=== PATIENT | male | born 1970 | race Caucasian/White ===

== ENCOUNTER 2021-11-24 15:17 | Emergency (ER) | payer OTHER, SELFPAY ==
[2021-11-24 15:24] VITALS: BP 130/69; PULSE 70; RESP 20; TEMP 36.6; O2SAT 98
--- NOTE | 2021-11-24 15:33 | ED.EAR ---
HPI - Ear Problem General Chief complaint: Ear Stated complaint: Right Ear Pain Time Seen by Provider: 11/24/21 15:30 Source: patient Mode of arrival: ambulatory Limitations: no limitations History of Present Illness HPI Narrative: Mr. Payne is a 51-year-old male patient presenting to the clinic today with complaints of right ear pain off and on for 2 months. But worse the last couple days. He noticed that he did get some water in his ear and thinks he may have an outer ear infection. He denies any fever or chills but he states that his hearing in the right ear has significantly decreased. Related Data Home Medications Medication Instructions Recorded Confirmed dextroamphetamine-amphetamine 20 20 mg PO DAILY 11/24/21 11/24/21 mg tablet fluoxetine 20 mg capsule 20 mg PO DAILY 11/24/21 11/24/21 Allergies Allergy/AdvReac Type Severity Reaction Status Date / Time No Known Allergies Allergy Unknown Verified 11/24/21 15:31 Review of Systems Review of Systems: Pertinent positives per HPI. Patient denies any fever, chills, rash, headache, visual changes, dizziness, cough, runny nose, sore throat, shortness of breath, chest pain, palpitations, nausea, vomiting, diarrhea, constipation, abdominal pain, or any urinary issues. [facility] Past Medical History Medical History (Updated 11/24/21 @ 15:50 by Ibrahima Cox APRN) Depression HLD (hyperlipidemia) Kidney stones Seasonal allergies Strabismus Surgical History Surgical History History of strabismus surgery correction of strabismus Hx of elbow surgery lt ulnar nerve release Hx of tympanostomy tubes Social History Social History Smoking status: Never smoker Comments At the time of my signature, I reviewed and agree with the nursing past medical, surgical, social, and family history. There is no relevant family history pertinent to the patient complaint. Exam Narrative: General: Well-developed, obese, in no apparent distress Head: Normocephalic, atraumatic Eyes: Pupils equally round and reactive to light bilaterally, EOM intact, sclera and conjunctive clear, no discharge, lids normal Ears: TMs intact and clear, ear canals with redness and swelling with noted foreign body, no drainage, grossly hearing normal. Nose: Nares patent, no discharge, no inflammation, no sinus tenderness. Mouth: Oropharynx without lesions or masses, good dentition, MMM. Neck: Supple, trachea midline, no enlargement of anterior or posterior cervical nodes, no thyroid masses or goiter palpable. Cardio: Regular rate and rhythm, s1 and s2 normal, no murmur appreciated. Resp: Clear to auscultation bilaterally anteriorly and posteriorly, no rhonchi, rales, wheezing or rubs is left-sided Course Course Emergency Course: Portions of this record may have been created with voice recognition software. Level of Care: Express Care Visit Vital Signs Vital signs: Vital Signs Temperature 36.6 C 11/24/21 15:24 Pulse Rate 70 11/24/21 15:24 Respiratory Rate 20 11/24/21 15:24 Blood Pressure 130/69 11/24/21 15:24 Pulse Oximetry 98 11/24/21 15:24 Oxygen Delivery Room Air 11/24/21 15:24 Temperature 36.6 C 11/24/21 15:24 Pulse Rate 70 11/24/21 15:24 Respiratory Rate 20 11/24/21 15:24 Blood Pressure 130/69 11/24/21 15:24 Pulse Oximetry 98 11/24/21 15:24 Oxygen Delivery Room Air 11/24/21 15:24 Vital signs reviewed Procedures FB Removal Ear Foreign Body #1: Foreign Body Removal Date: 11/24/21 Location: ear canal (R) Foreign Body Suspected: other (Cotton from Q-tip) TM intact pre-procedure: unable to visualize Foreign Body Removed: yes Foreign Body Removal Technique: irrigation Tympanic Membrane Intact Post Procedure: No Patient Tolerated Procedure: well and no co
== END 2021-11-24 15:57 | disposition home or self-care (01) ==
PROVIDERS: Emergency Provider Nurse Practitioner Family; PCP Emergency Medicine
DX: H60.311 Diffuse otitis externa, right ear (principal); H66.011 Acute suppurative otitis media with spontaneous rupture of ear drum, right ear; T16.1XXA Foreign body in right ear, initial encounter; X58.XXXA Exposure to other specified factors, initial encounter; E78.5 Hyperlipidemia, unspecified; F32.A Depression, unspecified
CPT/HCPCS: 69200; 99213; G0463

== ENCOUNTER 2022-02-02 14:06 | Emergency (ER) | payer OTHER, SELFPAY ==
[2022-02-02 14:10] VITALS: BP 160/79; PULSE 91; RESP 32; TEMP 36.9; O2SAT 98
[2022-02-02 14:19] LABS: Glucose Point of Care 100 mg/dl (65-105)
--- NOTE | 2022-02-02 14:19 | ED.URI ---
HPI - URI/Sore Throat General Chief Complaint: Upper Respiratory Infection Stated Complaint: sore throat achey sores on tongue Time Seen by Provider: 02/02/22 14:19 Source: patient and RN notes reviewed History of Present Illness HPI Narrative: Patient is a 51-year-old male who presents to the Urgent Care with complaints of sore throat, body aches, fatigue and dry mouth. Patient states has been ongoing for approximately 10 days. Patient states he has been taking DayQuil/ NyQuil for the symptoms. Denies any ill exposures or recent illness. Patient has not seen a doctor since the symptoms started. Denies any fever, nausea, vomiting or abdominal pain. No other acute complaints. No acute distress noted. Patient aware care. Some parts of this dictation were generated by voice recognition software and may contain typographical and/or grammatical inaccuracies. Related Data Home Medications Medication Instructions Recorded Confirmed dextroamphetamine-amphetamine 20 20 mg PO DAILY 11/24/21 11/24/21 mg tablet fluoxetine 20 mg capsule 20 mg PO DAILY 11/24/21 11/24/21 Allergies Allergy/AdvReac Type Severity Reaction Status Date / Time No Known Allergies Allergy Unknown Verified 02/02/22 14:32 Review of Systems Review of Systems: CONSTITUTIONAL: Denies fever, chills, or sweats. reports of fatigue EYES: Denies visual changes, redness, or discharge. ENT: Denies rhinorrhea, congestion, otalgia. Reports a sore throat and sores in the CARDIOVASCULAR: Denies chest pain, palpitations, or edema. RESPIRATORY: Denies cough or dyspnea. GASTROINTESTINAL: Denies abdominal pain, nausea, vomiting, or diarrhea. GENITOURINARY: Denies dysuria or hematuria. SKIN: Denies rash or itching. MUSCULOSKELETAL: Denies back pain, joint pain. Reports body aches NEUROLOGIC: Denies headache, numbness, or weakness. All other systems reviewed are negative, except as documented in HPI. [facility] Past Medical History Medical History (Updated 02/02/22 @ 15:02 by BLANE Bermudez) Depression HLD (hyperlipidemia) Kidney stones Seasonal allergies Strabismus Surgical History Surgical History History of strabismus surgery correction of strabismus Hx of elbow surgery lt ulnar nerve release Hx of tympanostomy tubes Social History Social History Smoking status: Never smoker Comments At the time of my signature, I reviewed and agree with the nursing past medical, surgical, social, and family history. There is no relevant family history pertinent to the patient complaint. Exam Narrative: GENERAL: This is a well-nourished, well-developed patient, in no apparent distress. HEAD: normocephalic, atraumatic. EYES: PERRL. Sclera clear/white. Vision is grossly intact. EARS: External ears normal, auditory canals clear and without drainage, TMs normal without perforation. Hearing grossly intact. NOSE: External nose normal with no obvious nasal discharge, nares without redness, no rhinorrhea. THROAT: Mucous membranes moist, posterior pharynx clear. mild postnasal drainage. Ulcerations noted to the left side of the oral mucosa and tongue. NECK: Neck supple, non-tender without lymphadenopathy CARDIOVASCULAR: Regular rate and rhythm without murmurs, gallops, or rubs. RESPIRATORY: Clear to auscultation. Breath sounds equal bilaterally. No wheezes, rales, or rhonchi. SKIN: warm, intact with no suspicious lesions or rash, good texture and turgor. NEURO: awake, alert, and oriented to person, place and time. There were no obvious focal neurologic abnormalities. EXTREMITIES: No clubbing, cyanosis, or edema. Course Course Level of Care: Express Care Visit Vital Signs Vital signs: Vital Signs Temperature 98.5 F 02/02/22 14:10 Pulse Rate 91 02/02/22 14:10 Respiratory Rate 32 H 02/02/22 14:10 Blood Pressure 160/79 H
== END 2022-02-02 15:07 | disposition home or self-care (01) ==
PROVIDERS: Emergency Provider Nurse Practitioner Family; PCP Emergency Medicine
DX: J02.0 Streptococcal pharyngitis (principal); Z20.822 Contact with and (suspected) exposure to COVID-19; E78.5 Hyperlipidemia, unspecified; F32.A Depression, unspecified
CPT/HCPCS: 82948; 87426; 87804; 87880; 99213; C9803; G0463

== ENCOUNTER 2022-08-13 17:59 | Emergency (ER) | payer OTHER, SELFPAY ==
--- NOTE | ~2022-08-13 | CT_ITS ---
EXAMINATION: CTA chest PE protocol DATE: 08/13/2022 19:01 INDICATION: Chest pain. Dyspnea. TECHNIQUE: Computed tomography angiography (CTA) of the chest was performed with 200 mL Omnipaque-350 intravenous contrast timed to evaluate the pulmonary arteries. Coronal maximum intensity projection 3D-reconstructions were created by the technologist. Automated exposure control and iterative reconst ruction technique were employed. The dose-length product was 1935.84 mGy-cm. COMPARISON: CT abdomen and pelvis 01/06/2019 FINDINGS: The lungs demonstrate mild atelectasis. No pleural effusion. The heart size is normal. No p ericardial effusion. There is no pulmonary embolus. There is diffuse hepatic steatosis. There is mild thoracic spondylosis. IMPRESSION: 1. No pulmonary embolus. 2. Diffuse hepatic steatosis. Reviewed, dictated and finalized at location E.
--- NOTE | ~2022-08-13 | XR_ITS ---
EXAMINATION: XR chest 2V DATE: 08/13/2022 18:12 INDICATION: Chest pain. Shortness of breath. TECHNIQUE: Frontal and lateral views of the chest were obtained. COMPARISON: Chest 2 views 01/23/2018, CT abdomen and pelvis 01/06/2019 FINDINGS: There is no pneumonia, pleural effusion, or pneumothorax. The heart size is normal. IMPRESSION: 1. No acute cardiopulmonary disease. Reviewed, dictated and finalized at location E.
--- NOTE | 2022-08-13 18:00 | ECG_ITS ---
Measurements Intervals [place] Rate: 92 P: 38 NE: 143 QRS: 8 QRSD: 93 T: 52 QT: 335 QTc: 416 Interpretive Statements SINUS RHYTHM NORMAL ECG NO PREVIOUS ECG AVAILABLE FOR COMPARISON Electronically Signed On 08-13-2022 20:18:08 CDT by Ryan Mullen D.O.
[2022-08-13 18:08] VITALS: BP 145/83; PULSE 102; RESP 17; TEMP 37; O2SAT 99
[2022-08-13 18:22] LABS: Basophils Percent Auto 0.2 % (0.2-1.2); Eosinophils Absolute Auto 0.1 K/mm3 (0-0.3); Eosinophils Percent Auto 0.6 % (0-4.4); Hematocrit 46.1 % (42.0-52.0); Hemoglobin 15.7 g/dL (14.0-18.0); Immature Granulocyte Absolute 0.05 K/mm3 (0.00-0.031); Immature Granulocyte Percent A 0.4 % (0-0.5); Lymphocytes Absolute Auto 3.01 K/mm3 (0.9-3.2); Lymphocytes Percent Auto 22.7 % (18.3-44.2); Mean Corpuscular HGB Conc 34.1 g/dl (32-36); Mean Platelet Volume 8.6 fl (7.4-10.4); Monocytes Absolute Auto 0.9 K/mm3 (0.1-0.6); Monocytes Percent Auto 6.9 % (2.6-8.5); Neutrophils Absolute Auto 9.2 K/mm3 (1.3-6.7); Neutrophils Percent Auto 69.2 % (45.5-73.1); Platelet Count Result 353 k/mm3 (150-375); Red Blood Count 5.24 M/mm3 (4.6-6.20); Red Cell Distribution Width 13.3 % (11.5-14.5); White Blood Count 13.3 K/mm3 (4.5-10.0)
[2022-08-13] MEDS: ASPIRIN 81 MG CHEWABLE TABLET 324 MG PO (18:35)
[2022-08-13 18:36] LABS: Alanine Aminotransferase 35 U/L (6-50); Albumin Level 4.5 g/dL (3.5-5.1); Alkaline Phosphatase 96 U/L (38-126); Anion Gap 12 mmol/L (8-16); Aspartate Amino Transferase 26 U/L (17-59); Bilirubin,Total 0.7 mg/dL (0.2-1.3); Blood Urea Nitrogen 15 mg/dL (9-20); Calcium 9.2 mg/dL (8.4-10.2); Carbon Dioxide 25 mmol/L (22-30); Chloride 101 mmol/L (98-107); Estimated CRCL calculation 117 ml/min; Estimated Glomerular Filt Rate > 60; Glucose 110 mg/dL (65-110); Lipase 116 U/L (23-300); Potassium 4.1 mmol/L (3.4-5.0); Sodium 138 mmol/L (137-145)
--- NOTE | 2022-08-13 18:36 | ED.CHESTPAIN ---
HPI - Chest Pain General Chief Complaint: Chest Pain <Emma Morgan PA-C - Last Filed: 08/13/22 21:50> Stated Complaint: high heartrate/chest pain <Emma Morgan PA-C - Last Filed: 08/13/22 21:50> Time Seen by Provider: 08/13/22 18:18 <Emma Morgan PA-C - Last Filed: 08/13/22 21:50> History of Present Illness HPI narrative: 52-year-old male with history of atrial fibrillation, hyperlipidemia, depression and anxiety reports for evaluation of intermittent chest pain and shortness of breath for the past week. Patient reports the chest pain is located over his left anterior chest and is sharp in nature. It does not radiate anywhere. States the chest pain or shortness of breath occur while he is sitting in his chair. He does not recognize anything that makes the pain or shortness of breath better or worse. Patient also reports an increased heart rate over the past week. States his heart rate will be around 100 bpm, highest has been 122 bpm while he is sitting. He does endorse that he has been under more stress recently and his anxiety and depression have escalated the past 2 weeks. States he has been evaluated by his primary care doctor and was recently started on aripiprazole yesterday and doubled his dose of duloxetine. He also endorses intermittent nausea with the chest pain and shortness of breath. Denies diaphoresis, abdominal pain, dysphagia or odynophagia, fever, bodies, chills, cough, leg swelling or pain. He does not have any cardiac history other than atrial fibrillation. 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 <Emma Morgan PA-C - Last Filed: 08/13/22 21:50> Related Data Home Medications: Home Medications Medication Instructions Recorded Confirmed dextroamphetamine-amphetamine 20 20 mg PO DAILY 11/24/21 11/24/21 mg tablet fluoxetine 20 mg capsule 20 mg PO DAILY 11/24/21 11/24/21 <ERICH Carver Last Filed: 08/13/22 21:50> Allergies/Adverse Reactions: Allergies Allergy/AdvReac Type Severity Reaction Status Date / Time No Known Allergies Allergy Unknown Verified 02/02/22 14:32 <Emma Morgan PA-C - Last Filed: 08/13/22 21:50> Review of Systems Review of Systems: CONSTITUTIONAL: Denies fever, chills EYES: Denies visual changes, redness, or discharge. ENT: Denies rhinorrhea, congestion, sore throat, or otalgia. CARDIOVASCULAR: See HPI RESPIRATORY: Denies cough or dyspnea. GASTROINTESTINAL: Denies abdominal pain, nausea, vomiting, or diarrhea. GENITOURINARY: Denies dysuria or hematuria. SKIN: Denies rash or itching. MUSCULOSKELETAL: Denies back pain, joint pain, or myalgia. NEUROLOGIC: Denies headache, numbness, dizziness, or weakness. PSYCHIATRIC: See HPI <Emma Morgan PA-C - Last Filed: 08/13/22 21:50> [facility] Past Medical History Medical History: Medical History (Updated 08/14/22 @ 00:00 by Hemalatha Durán) Depression HLD (hyperlipidemia) Kidney stones Seasonal allergies Strabismus <Emma Morgan PA-C - Last Filed: 08/13/22 21:50> Surgical History Surgical History: Surgical History History of strabismus surgery correction of strabismus Hx of elbow surgery lt ulnar nerve release Hx of tympanostomy tubes <Emma Morgan PA-C - Last Filed: 08/13/22 21:50> Social History Social History: Social History Smoking status: Never smoker <Emma Morgan PA-C - Last Filed: 08/13/22 21:50> Exam Narrative: GENERAL: No acute distress. Resting comfortably in exam bed. Pleasant and conversational. Speaking in full sentences HEAD: Normocephalic EYES: PERRLA ENT: Nares clear. Mucous membranes moist. Oropharynx without tonsillar hypertrophy exudate or other lesions. NECK: Supple. CHEST: No respiratory distress. Clear to auscultation, no adventitious breath sound
[2022-08-13 18:37] LABS: INR 0.9; Prothrombin Time 12.3 Seconds (11.1-14.7)
[2022-08-13 18:38] LABS: Partial Thromboplastin Time 28.6 SECONDS (22.3-36.8)
[2022-08-13] MEDS: LORazepam INJ (*CRX) 2 MG/ML VIAL 0.5 MG IV PUSH (18:46)
[2022-08-13] MEDS: ONDANSETRON INJ 4 MG/2 ML VIAL IV PUSH (18:47)
[2022-08-13 18:48] LABS: Troponin I < 0.012 ng/mL (0.000-0.034)
[2022-08-13 19:02] LABS: NT Pro B Type Natriuretic Pept < 20 pg/mL (19.9-100)
[2022-08-13 21:22] LABS: Troponin I < 0.012 ng/mL (0.000-0.034)
== END 2022-08-13 22:26 | disposition home or self-care (01) ==
PROVIDERS: Emergency Medicine; Emergency Provider Physician Assistant; PCP Emergency Medicine
DX: R07.89 Other chest pain (principal); F41.9 Anxiety disorder, unspecified; I48.91 Unspecified atrial fibrillation; E78.5 Hyperlipidemia, unspecified; F32.A Depression, unspecified; Z87.442 Personal history of urinary calculi; K76.0 Fatty (change of) liver, not elsewhere classified
CPT/HCPCS: 36415; 71046; 71275; 80053; 83690; 83880; 84484; 85025; 85610; 85730; 93005; 96374; 96375; 99284; A9270; J2060; J2405; Q9967

== ENCOUNTER 2023-03-23 11:49 | Emergency (ER) | payer OTHER, SELFPAY ==
[2023-03-23 11:54] VITALS: PULSE 77; RESP 18; TEMP 36.2; O2SAT 97
[2023-03-23 11:57] VITALS: BP 140/80
--- NOTE | 2023-03-23 12:12 | ED.URI ---
HPI - URI/Sore Throat General Chief Complaint: Upper Respiratory Infection Stated Complaint: head/sinus/ears Time Seen by Provider: 03/23/23 12:28 Source: patient and RN notes reviewed Mode of arrival: ambulatory Limitations: no limitations History of Present Illness HPI Narrative: 52-year-old male presents with concern for bilateral ear pain, feeling of ?air? in his ear. Reports 4-5 day history of symptoms. Reports he has used ear drops in the past for ear pain and is requesting a refill. He reports he has been taking ?everything? [id number] without symptom relief. MD elicited complaint: rhinorrhea, nasal congestion and other (Ear pain) Related Data Home Medications Medication Instructions Recorded Confirmed dextroamphetamine-amphetamine 20 20 mg PO DIRECTED 03/23/23 03/23/23 mg tablet duloxetine 60 mg capsule,delayed 60 mg PO DIRECTED 03/23/23 03/23/23 release metformin 500 mg tablet,extended 500 mg PO DIRECTED 03/23/23 03/23/23 release 24 hr Allergies Allergy/AdvReac Type Severity Reaction Status Date / Time No Known Allergies Allergy Unknown Verified 03/23/23 12:09 Review of Systems Review of Systems: CONSTITUTIONAL: Reports malaise, chills, sweats EYES: Denies visual changes, redness, or discharge. ENT: Reports rhinorrhea, congestion, sinus pain, otalgia CARDIOVASCULAR: Denies chest pain, palpitations, or edema. RESPIRATORY: Reports cough. Denies dyspnea. GASTROINTESTINAL: Denies abdominal pain, nausea, vomiting, diarrhea SKIN: Denies rash or itching. MUSCULOSKELETAL: Denies myalgia. NEUROLOGIC: Denies headache. All systems reviewed & are unremarkable except as noted in HPI and below PMFSH Past Medical History Medical History (Updated 03/23/23 @ 12:56 by Mariel Mccollum NP) Depression HLD (hyperlipidemia) Kidney stones Seasonal allergies Strabismus Surgical History Surgical History History of strabismus surgery correction of strabismus Hx of elbow surgery lt ulnar nerve release Hx of tympanostomy tubes Social History Social History Smoking status: Never smoker Comments At time of signature, agree with nursing past medical, surgical, social and family history. There is no relevant family history pertinent to the presenting complaint Exam Narrative: GENERAL: Well-appearing, well-nourished, and in no acute distress. HEAD: Normocephalic EYES: PERRLA, conjunctivae clear ENT: Nares clear, turbinates edematous and erythematous, clear discharge. Mucous membranes moist. TM pearly cortez with dull light reflex bilaterally; no tragal tenderness, EAC unremarkable bilaterally. Oropharynx not erythematous without lesions. Tonsils not enlarged and without exudate, no drooling, no hoarseness, no trismus, uvula midline. NECK: Supple. No lymphadenopathy CHEST: Clear to auscultation, breath sounds equal. No wheezing, rhonchi, rales, or stridor. No respiratory distress, speaks in full sentences. HEART: Regular rate and rhythm. No murmur heard. SKIN: Warm, dry, no rash. NEURO: Alert and oriented x3. PSYCH: Normal mood and affect Course Course Emergency Course: Patient is aware of diagnosis, understands and agrees to treatment plan. Anticipatory guidance given. Patient agrees to follow-up as directed and is aware of reasons to seek care at the emergency department. Portions of this record may have been created with voice recognition software Level of Care: Express Care Visit Vital Signs Vital signs: Vital Signs Temperature 97.1 F L 03/23/23 11:54 Pulse Rate 77 03/23/23 11:54 Respiratory Rate 18 03/23/23 11:54 Pulse Oximetry 97 03/23/23 11:54 Oxygen Delivery Room Air 03/23/23 11:54 Temperature 97.1 F L 03/23/23 11:54 Pulse Rate 77 03/23/23 11:54 Respiratory Rate 18 03/23/23 11:54 Pulse Oximetry 97 03/23/23 11:54 Oxygen
== END 2023-03-23 13:03 | disposition home or self-care (01) ==
PROVIDERS: Emergency Provider Nurse Practitioner; PCP Emergency Medicine
DX: U07.1 COVID-19 (principal); E78.5 Hyperlipidemia, unspecified
CPT/HCPCS: 87426; 87804; 99213; C9803; G0463